=== PATIENT | female | born 1965 | race Caucasian/White ===

== ENCOUNTER 2017-10-31 10:42 | Day surgery (SDC) | payer OTHER ==
[2017-10-31] MEDS ORDERED: LIDOCAINE 2% (SDV) 5 ML INJ (11:52)
[2017-10-31] MEDS ORDERED: ROCURONIUM 50 MG INJ (11:52)
[2017-10-31] MEDS ORDERED: GLYCOPYRROLATE 0.4 MG INJ (11:52)
[2017-10-31] MEDS ORDERED: FENTAnyl 50 MCG/ML VIAL ×2 (11:52→13:56)
[2017-10-31] MEDS ORDERED: NEOSTIGMINE 3 MG/3 ML SYRINGE (11:52)
[2017-10-31] MEDS ORDERED: PROPOFOL 20 ML (11:52)
[2017-10-31] MEDS ORDERED: MIDAZOLAM 1 MG/ML 2 ML INJ (11:52)
[2017-10-31] MEDS ORDERED: DEXAMETHASONE 4 MG/ML 1 ML INJ (11:54)
[2017-10-31] MEDS ORDERED: ONDANSETRON 4 MG INJ (11:54)
[2017-10-31] MEDS ORDERED: NALOXONE (0.4 MG/ML) INJ IV (12:00)
[2017-10-31] MEDS ORDERED: CEFAZOLIN 1 GM INJ (12:52)
[2017-10-31] MEDS: POLYMYXIN/BACITRACIN 1L IRRIG (13:15)
[2017-10-31] MEDS: BUPIVACAINE 0.5% (SDV) 30 ML INJ (13:15)
[2017-10-31] MEDS: FENTAnyl 50 MCG/ML VIAL IV (14:20)
[2017-10-31] MEDS ORDERED: HYDROCODONE/APAP (5/325) TAB (14:27)
[2017-10-31] MEDS ORDERED: HYDROmorphONE 1 MG/5 ML IV SYRINGE IV ×3 (14:30)
[2017-10-31] MEDS ORDERED: FENTAnyl 50 MCG/ML VIAL IV ×2 (14:30)
[2017-10-31] MEDS ORDERED: ONDANSETRON 4 MG INJ IV (14:30)
[2017-10-31] MEDS: HYDROCODONE/APAP (5/325) TAB PO (15:00)
[2017-10-31] MEDS ORDERED: HYDROCODONE/APAP (5/325) TAB PO (15:00)
== END 2017-10-31 15:44 | disposition home or self-care (01) ==
LOC: SDS 10:42
DX: M21.611 Bunion of right foot (principal); M20.11 Hallux valgus (acquired), right foot
CPT/HCPCS: 28296; 84703; 88304; 88311